=== PATIENT | male | born 1955 | race Asian ===

== ENCOUNTER 2018-04-11 18:28 | Day surgery (SDC) | payer OTHER ==
--- NOTE | 2018-04-11 19:47 | ED ---
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 He states he was eating fish and did not see a fishbone when he took a bite, but felt it go down and it still feels like there is something stuck there. He is able to swallow and denies any other complaints, no abdominal pain, vomiting, fevers, trouble breathing. - History of Current Complaint Chief Complaint: EDForeignBodyEsophag Time Seen by Provider: 04/11/18 19:47 - Allergies/Home Medications Allergies/Adverse Reactions: Allergies Allergy/AdvReac Type Severity Reaction Status Date / Time No Known Allergies Allergy Verified 04/11/18 18:36 Home Medications: Home Medications NK [No Home Medications Reported] 04/11/18 [History Confirmed 04/11/18] PMH/Surg Hx/FS Hx/Imm Hx Previously Healthy: Yes Endocrine/Hematology History: Denies: Hx Diabetes Cardiovascular History: Denies: Hx Hypertension Respiratory History: Denies: Hx Chronic Obstructive Pulmonary Disease (COPD) Infectious Disease History: No Infectious Disease History: Denies: Hx Hepatitis, Traveled Outside the [place] in Last 30 Days - Social History Alcohol Use: None Substance Use Type: Reports: None Smoking Status (MU): Former Smoker Review of Systems Negative: Fever, Chills Positive: Other - foreign body sensation as above Negative: Palpitations Negative: Shortness Of Breath Negative: Abdominal Pain All Other Systems Reviewed And Are Negative: Yes Physical Exam - Summary Physical Exam Summary: General: This is a well-developed, well- nourished male lying on the stretcher in no apparent distress. The patient does not appear ill or toxic. Neck: No obvious swellings. The patient is able to swallow water. Lungs: There are no signs of respiratory distress. Coronary: Peripheral perfusion is good. Abdomen: The abdomen appears normal and is nondistended. Genitourinary: Deferred Back: Good range of motion is observed. Extremities: Good range of motion was observed in all 4 extremities. There is no sign of any trauma to the extremities. Neurologic: The patient is awake and alert, speech is fluent and conversation is appropriate. Psychiatric: The patients affect is felt to be normal and appropriate. There is no sign of any hallucinations or delusions, or any other signs of psychosis. Vital Signs On Initial Exam: Initial Vitals Temp Pulse Resp BP Pulse Ox 36.5 C 74 16 156/91 98 04/11/18 18:32 04/11/18 18:32 04/11/18 18:32 04/11/18 18:32 04/11/18 18:32 Diagnostics - Vital Signs Vital Signs Temp Pulse Resp BP Pulse Ox 04/11/18 18:32 36.5 C 74 16 156/91 98 - Laboratory Lab Statement: Any lab studies that have been ordered have been reviewed, and results considered in the medical decision making process. - CT No standard instances CT Interpretation Completed By: Radiologist Summary of CT Findings: A foreign body consistent with fish bone is seen in the esophagus at the level of T1. There are no findings of esophageal perforation. EENT Course/Dx - Course Course Of Treatment: The case was discussed with the on-call sign language interpreter , who will come in to emergently endoscope the patient to remove the bone seen on imaging. The CT scan does not show any evidence of esophageal perforation fortunately. - Diagnoses Provider Diagnoses: Impacted esophageal foreign body Discharge - Sign-Out/Discharge Documenting (check all that apply): Patient Departure - Discharge Plan Condition: Stable Disposition: ADMITTED TO [facility] - Billing Disposition and Condition Condition: STABLE Disposition: Admitted to [facility] - Attestation Statements Document Initiated by Tiffany: No
--- NOTE | 2018-04-11 21:04 | RAD ---
EXAM: CT Neck Without Intravenous Contrast EXAM DATE/TIME: 04/11/2018 8:22 PM CLINICAL HISTORY: 62 years old, male; Pain; Painful swallowing; Additional info: Fbs sensation, ? bone on xray level of t1, PT possibly swallowed fishbone TECHNIQUE: Axial computed tomography images of the neck without intravenous contrast. All CT scans at this facility use at least one of these dose optimization techniques: automated exposure control; mA and/or kV adjustment per patient size (includes targeted exams where dose is matched to clinical indication); or iterative reconstruction. Coronal and sagittal reformatted images were created and reviewed. COMPARISON: No relevant prior studies available. FINDINGS: Nasopharynx: Normal. Oropharynx: Normal. No significant tonsillar enlargement. Hypopharynx: Normal. Larynx: Normal. Normal epiglottis. Trachea: Normal. Retropharyngeal space: Normal. Submandibular/Parotid glands: Normal. Glands are normal in size. Thyroid: Normal. No enlarged or calcified nodules. Bones/joints: Normal. No acute fracture. Soft tissues: Normal. No significant soft tissue swelling. Vasculature: Atherosclerotic calcification. Lymph nodes: Normal. No lymphadenopathy. Lung apices: Normal as visualized. Esophagus: Ingested foreign body is present in the esophagus at the C7 level. Finding seen best on the sagittal and axial efyskn11. IMPRESSION: Esophageal foreign body compatible with the clinical history provided of ingested fishbone. No perforation demonstrated. To contact [facility] with a general question: Operations Center - [phone] For direct physician to physician contact: Physician Hotline - [phone] [facility] ([facility] ID #[id number])
[2018-04-11] MEDS ORDERED: fentaNYL* 50 MCG/ML 2 ML VIAL (100 MCG VIAL) ONE (23:14)
[2018-04-11] MEDS ORDERED: Midazolam* 1 MG/ML 2 ML VIAL (2 MG) ONE (23:14)
[2018-04-11] MEDS ORDERED: Famotidine IV* 10 MG/ML 2 ML (20 mg) ONE (23:54)
[2018-04-11] MEDS ORDERED: Lidocaine 2% PF * 5 ML VIAL ONE (23:54)
[2018-04-11] MEDS ORDERED: Propofol* 10 MG/ML 20 ML BTL IV PUSH ONE (23:54)
[2018-04-12] MEDS ORDERED: Buffered Lidocaine 0.9% SYRIN* 5 ML/SYR SYRINGE INTRADERM ONE (00:21)
[2018-04-12] MEDS ORDERED: Acetaminophen TAB* 325 MG PO PRN (00:21)
[2018-04-12] MEDS ORDERED: fentaNYL* 50 MCG/ML 2 ML VIAL (100 MCG VIAL) IV PRN (00:21)
[2018-04-12] MEDS ORDERED: Ondansetron INJ* 2 MG/ML VIAL IV PRN (00:21)
[2018-04-12] MEDS ORDERED: Naloxone* 0.4 MG/ML 1 ML VIAL IV PRN (00:21)
[2018-04-12] MEDS ORDERED: PROCHLORPERAZINE INJ 5 MG/ML 2 ML VIAL IV PRN (00:21)
[2018-04-12 00:40] VITALS: BP 138/82
--- NOTE | 2018-04-12 04:50 | CONS ---
GASTROENTEROLOGY CONSULT: DATE: 04/11/18 CONSULTING PHYSICIAN: Phoenix Gallego, Emergency Room. 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 He went to critical access hospital care and then was transferred to the emergency room where plain x-ray and CT scan documents a bone. He is still feeling it there. He is handling his own secretions. He denies ever having anything like this before. He does not have swallowing problems in general or has dyspeptic problems. He is in excellent general health, on no medications. PAST MEDICAL HISTORY: 1. Status post gastric surgery, which he thinks was for bleeding. It was done 30 years ago in [facility]. 2. Probable cholecystectomy - in [facility] 2001. MEDICATIONS: None at home. ALLERGIES : None. SOCIAL HISTORY: He is from [place] originally. He works in restaurants. He lists a in [place]. REVIEW OF SYSTEMS: He exercises every day. There is no history of neurologic problems, seizures, syncope, lung problems, hemoptysis, chest pain, liver problems, or bowel problems. PHYSICAL EXAMINATION: He is a slender, well muscled, vigorous appearing man, in no overt distress but he points directly to the sternal notch that is still giving him discomfort. HEENT exam is unremarkable. He is handling his own secretions and is not salivating. There is nothing palpable in the supraclavicular areas. Breath sounds are normal and intact. Lungs are clear. The abdomen is firm and symmetric with a midline scar and small scars consistent with trocar ports. Lower abdomen is benign. and rectal exams are deferred. Extremities show no deformity, excellent muscle tone and no edema. Neurologic is nonfocal. He is alert, oriented, conversing freely with normal cranial nerves and movement of all 4 extremities. LABORATORY DATA: None CT scan - documents a foreign body at the cricopharyngeus with no deep injury now IMPRESSION: Bone caught in the proximal esophagus or at the cricopharyngeus - given the location of this and the delicacy of the tissue, Anesthesia will be requested to assist. [id number]/CPS #: [id number] MTDD
--- NOTE | 2018-04-12 07:11 | RAD ---
INDICATION: Foreign body sensation in the throat. COMPARISON: There are no relevant prior studies available for comparison. TECHNIQUE: AP and lateral images of the soft tissue of the neck were obtained. FINDINGS: The epiglottis and aryepiglottic folds appear to be within normal limits. The airway appears patent. There is a linear calcific density present which projects in the prevertebral soft tissues anterior to the T1 vertebral body suspicious for a foreign body in the esophagus. This was evaluated on a follow-up CT examination. IMPRESSION: POSSIBLE FOREIGN BODY. R0
--- NOTE | 2018-04-12 14:43 | PRO ---
DATE: 04/12/18 REFERRING PHYSICIAN: Phoenix Gallego, Emergency Room. PROCEDURE: Upper gastrointestinal endoscopy and removal of upper esophageal foreign body and CLOtest gastric body. 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 He is also status post apparent peptic ulcer surgery 30 years ago. Apart from tonight's events, he does not have any ongoing gastrointestinal problems. Informed consent was obtained preprocedure with description of the chief risks. The possibility of admission was described. ENDOSCOPIST: Dr Keith. ANESTHESIA : Dr. Valdes FINDINGS: Mr Montalvo is a thin, well muscled male in no distress. EGD: Larynx - minimal amount of blood staining at the esophageal inlet. Esophagus - right at the cricopharyngeus, a rectangular bone appears to be stuck at the cricopharyngeus. It would flutter when touched, but seemed to be wedged in place. It could not be grasped with a biopsy forceps and so a snare was inserted. It took a little while to get proper orientation around the edges as the bone was filling the entire lumen, but eventually the bone was advanced a couple of centimeters down giving more space and then was grasped with a snare and was drawn back up to the cricopharyngeus. At this point, Dr. Valdes gave a relaxing agent (nitroglycerine) and bone was able to be withdrawn through the cricopharyngeus. Second look: Esophagus - a fair amount of superficial bruising from about 19 to 21 cm. There was no deep laceration and no significant bleeding. The rest of the mid and distal esophagus appeared normal. The EG junction was at 39 to 40 and normal. Stomach - appeared to be a pouch of the fundus and body. There did not seem to be too much antrum and the appearance was that of Billroth I antrectomy. Duodenum - entered and seen to be normal. From about at noon to 4'clock orientation, there was a prominent erosion or small ulcer paralleling the contour of the anastomosis. It was fairly superficial and certainly had no stigmata or high-risk features. IMPRESSION: 1. Esophageal foreign body - resolved. 2. Mild mucosal injury and excoriation - 3 days of restricted diet. 3. Status post Billroth I gastrectomy. CLOtest pending Addendum : Clotest positive [id number]/CPS #: [id number]
--- NOTE | 2018-04-13 06:46 | ED ---
Progress - Progress Note Progress Note: Pt's Clotest is positive. Pt was admitted to [facility]. No further action at this time. Course/Dx - Course Course Of Treatment: The case was discussed with the on-call drilling engineering manager , who will come in to emergently endoscope the patient to remove the bone seen on imaging. The CT scan does not show any evidence of esophageal perforation fortunately. - Diagnoses Provider Diagnoses: Impacted esophageal foreign body Discharge - Sign-Out/Discharge Documenting (check all that apply): Post-Discharge Follow Up - Discharge Plan Condition: Stable Disposition: ADMITTED TO [facility] Referrals: No Primary Care Phys,NOPCP [Primary Care Provider] - - Billing Disposition and Condition Condition: STABLE Disposition: Admitted to [facility]
== END 2018-04-11 23:25 | disposition short-term general hospital (02) ==
LOC: ED 18:28 → OR 23:25
PROVIDERS: ATTEND Internal Medicine Gastroenterology
DX: T18.128A Food in esophagus causing other injury, initial encounter (principal); Z87.891 Personal history of nicotine dependence; X58.XXXA Exposure to other specified factors, initial encounter
CPT/HCPCS: 70360; 70490; 87077; 96374; 99283; J2250; J2704; J3010